=== PATIENT | female | born 1990 | race Caucasian/White ===

== ENCOUNTER 2017-10-16 13:52 | Emergency (ER) | payer OTHER, BC ==
[2017-10-16 14:04] VITALS: BP 144/78; PULSE 103; RESP 18; TEMP 98.8
--- NOTE | 2017-10-16 14:33 | XR ---
EXAMINATION TYPE: XR hand complete RT, XR wrist complete RT DATE OF EXAM: 10/16/2017 CLINICAL HISTORY: Right hand and wrist pain after fall TECHNIQUE: Frontal, lateral and oblique images of the right hand are obtained. COMPARISON: None. FINDINGS: There is no acute fracture/dislocation evident in the right hand. The joint spaces in the right hand appear within normal limits. The overlying soft tissue appears unremarkable. There is no acute fracture/dislocation evident in the right wrist. The joint spaces in the right wri st appear within normal limits. The overlying soft tissue appears unremarkable. IMPRESSION: There is no acute fracture or dislocation in the right wrist or hand.
--- NOTE | 2017-10-16 15:04 | ED ---
Upper Extremity HPI - General Chief Complaint: Extremity Injury, Upper Stated Complaint: Rt Wrist Injury Time Seen by Provider: 10/16/17 14:18 Source: patient, RN notes reviewed, old records reviewed Mode of arrival: ambulatory Limitations: no limitations - History of Present Illness Initial Comments: 26-year-old female presents emergency Department with right wrist pain and hand pain. Patient states that she fell last night, states tried to catch herself with her right hand. Patient states she broke that wrist before in the past. Denies any other injury related to the fall. - Related Data Home Medications Medication Instructions Recorded Confirmed Sertraline [Zoloft] 50 mg PO DAILY 10/16/17 10/16/17 Allergies Allergy/AdvReac Type Severity Reaction Status Date / Time No Known Allergies Allergy Verified 10/16/17 14:04 Review of Systems ROS Statement: Those systems with pertinent positive or pertinent negative responses have been documented in the HPI. ROS Other: All systems not noted in ROS Statement are negative. Past Medical History Past Medical History: No Reported History History of Any Multi-Drug Resistant Organisms: None Reported Past Surgical History: No Surgical Hx Reported Past Psychological History: Anxiety, Depression Smoking Status: Never smoker Past Alcohol Use History: Occasional Past Drug Use History: None Reported General Exam - General Exam Comments Initial Comments: This patient is a 26 year old female no distress. Limitations: no limitations General appearance: alert, in no apparent distress Head exam: Present: atraumatic, normocephalic, normal inspection Eye exam: Present: normal appearance, PERRL, EOMI. Absent: scleral icterus, conjunctival injection, periorbital swelling ENT exam: Present: normal exam, mucous membranes moist Neck exam: Present: normal inspection. Absent: tenderness, meningismus, lymphadenopathy Respiratory exam: Present: normal lung sounds bilaterally. Absent: respiratory distress, wheezes, rales, rhonchi, stridor Cardiovascular Exam: Present: regular rate, normal rhythm, normal heart sounds. Absent: systolic murmur, diastolic murmur, rubs, gallop, clicks GI/Abdominal exam: Present: soft, normal bowel sounds. Absent: distended, tenderness, guarding, rebound, rigid Right Upper Arm exam: Present: normal inspection, full ROM Elbow exam: Present: normal inspection, full ROM Forearm Wrist exam: Present: normal inspection, full ROM, tenderness over anatomical snuff box Hand Wrist exam: Present: normal inspection, full ROM Neuro motor exam: Present: wrist extension intact, thumb opposition intact, thumb IP flexion intact, thumb adduction intact, fingers 2-5 abduction intact Vascular: Present: normal capillary refill Back exam: Present: normal inspection Neurological exam: Present: alert, oriented X3, CN II-XII intact Psychiatric exam: Present: normal affect, normal mood Skin exam: Present: warm, dry, intact, normal color. Absent: rash Course Vital Signs 10/16/17 14:01 Temperature 98.8 F Pulse Rate 103 H Respiratory 18 Rate Blood Pressure 144/78 O2 Sat by Pulse 100 Oximetry Procedures - Orthopedic Splinting/Casting Injury #1 Side: right Upper Extremity Injury Location: wrist, hand Upper Extremity Immobilizer: thumb spica, Ken wrap, synthetic pre-padded splint Medical Decision Making - Medical Decision Making 26-year-old female presents emergency Department with right wrist pain and hand pain. Patient states that she fell last night, states tried to catch herself with her right hand. Patient has snuff box tenderness. Patient has full ROM of the wrist and hand, normal sensation. Patient placed on a thumb spica splint due to tenderness and FOOSH injury. Discussed follow up with PCP and ortho. Return parameters discussed. - Radiology Data Radiology results: report reviewed X-ray of the hand and wrist are negative for any acute fracture. Disposition Clinical Impression: Right wrist pain, Fall Disposition: HOME SELF-CARE Condition: Good Instructions: Hand Sprain (ED), Scaphoid Fracture (ED) Additional Instructions: Patient advised to take Motrin and Tylenol for pain. Remain in the splint. Ice the hand and wrist is much as possible. Return to the emergency department if any alarming signs or symptoms occur. Follow-up with orthopedic in 7-10 days for repeat x-rays. Is patient prescribed a controlled substance at d/c from ED?: No When asked, does pt state using other controlled substances?: No If prescribed controlled substance>3 days was MAPS reviewed?: No If opioid is for acute pain is fill amount 7 days or less?: No If Rx opioid, was Start Talking consent form obtained?: No Referrals: Kendall Aj MD [Primary Care Provider] - 1-2 days Ronnie Quiñonez MD [STAFF PHYSICIAN] - 1-2 days Time of Disposition: 15:04
== END 2017-10-16 15:25 | disposition home or self-care (01) ==
LOC: EC 13:52
DX: M25.531 Pain in right wrist (principal); M25.541 Pain in joints of right hand; F32.9 Major depressive disorder, single episode, unspecified; F41.9 Anxiety disorder, unspecified; Z79.899 Other long term (current) drug therapy; W19.XXXA Unspecified fall, initial encounter; Y92.009 Unspecified place in unspecified non-institutional (private) residence as the place of occurrence of the external cause
CPT/HCPCS: 29125; 99284

== ENCOUNTER 2018-11-02 14:42 | Emergency (ER) | payer BC, OTHER ==
[2018-11-02 14:48] VITALS: BP 126/83; PULSE 110; RESP 22; TEMP 98.6
--- NOTE | 2018-11-02 16:04 | CT ---
EXAMINATION TYPE: CT brain jonathan wo con DATE OF EXAM: 11/02/2018 COMPARISON: Brain 03/29/2010 HISTORY: 27-year-old female Fall, posterior head injury, hitting head on tool box. Pain. CT DLP: 1264.7 mGycm Automated exposure control for dose reduction was used. Technique: Examination of the head was done in axial plane without intravenous contrast. Coronal and sagittal reconstructions performed. CT of the cervical spine was obtained in axial plane without intravenous injection of contrast mater ial. Coronal and sagittal reformatted images were obtained from the axial views for evaluation of f ractures, spinal alignment and canal. FINDINGS: Head: There is no evidence of acute intracranial hemorrhage, acute ischemic changes, mass, mass-effect, or extra-axial fluid collection. There is no effacement of cerebral sulci or basal subarachnoid cister ns. There is no hydrocephalus. There is no midline shift. Arias-white matter distinction is preserv ed. There is mucosal thickening in air fluid level in the left sphenoid sinus. Orbits and globes are inta ct. No calvarial fracture. Mastoid air cells well pneumatized. Cervical spine: The alignment of the cervical spine is normal on coronal and reformatted images. There is no cranial vertebral abnormality. Fracture of the cervical spine is not seen. Reversal of the normal cervical lo rdosis could be positional or due to muscle spasm. There is no evidence of focal disk herniation down to the C5 level. Below this level, artifact from the patient's shoulders limits assessment of the sp inal canal. Sagittal and coronal reformatted images confirm above findings. COMBINED IMPRESSION: 1. No acute intracranial abnormality seen. 2. No acute fracture or malalignment of the cervical spine.
--- NOTE | 2018-11-02 16:05 | XR ---
EXAMINATION TYPE: XR forearm LT DATE OF EXAM: 11/02/2018 COMPARISON: NONE HISTORY: 27-year-old female with pain after fall TECHNIQUE: 2 views FINDINGS: There may be some mild dorsal sided soft tissue swelling along the mid forearm. No underlyi ng acute fracture. Wrist and elbow articulations appear grossly intact. No elbow joint effusion. IMPRESSION: Some dorsal sided soft tissue swelling. No underlying acute osseous abnormality seen.
--- NOTE | 2018-11-02 16:18 | ED ---
Fall HPI - General Chief Complaint: Fall Stated Complaint: Fall, head injury Time Seen by Provider: 11/02/18 14:58 Source: patient Mode of arrival: ambulatory - History of Present Illness Initial Comments: 27-year-old female presenting for mechanical fall. Patient states that she was in her yard doing work when she tripped falling into a toolbox per she hit the right side of her head she extended her left forearm and had an abrasion and about. Patient denies loss of conscious. Patient states she has had a slight headache and nausea. Denies vomiting. Patient denies visual changes she denies any neck pain back pain or any other areas of injury. Remaining review of systems negative. Upon arrival patient appears well signs of acute distress. Patient denies any anticoagulation use. Patient denies any other symptoms. - Related Data Home Medications Medication Instructions Recorded Confirmed Sertraline [Zoloft] 50 mg PO DAILY 10/16/17 10/16/17 Allergies Allergy/AdvReac Type Severity Reaction Status Date / Time No Known Allergies Allergy Verified 10/16/17 14:04 Review of Systems ROS Statement: Those systems with pertinent positive or pertinent negative responses have been documented in the HPI. ROS Other: All systems not noted in ROS Statement are negative. Past Medical History Past Medical History: No Reported History History of Any Multi-Drug Resistant Organisms: None Reported Past Surgical History: No Surgical Hx Reported Past Psychological History: Anxiety, Depression Smoking Status: Never smoker Past Alcohol Use History: Occasional Past Drug Use History: None Reported General Exam - General Exam Comments Initial Comments: General: The patient is awake and alert, in no distress, and does not appear acutely ill. Eye: +3 mm pupils are equal, round and reactive to light, extra-ocular movements are intact. No nystagmus. There is normal conjunctiva bilaterally. No signs of icterus. Ears, nose, mouth and throat: There are moist mucous membranes and no oral lesions. Neck: The neck is supple, there is no tenderness or JVD. No midline or paravertebral tenderness of the cervical spine. Full range of motion of the cervical spine. No raccoon or Lazar sign. Cardiovascular: There is a regular rate and rhythm. No murmur, rub or gallop is appreciated. Respiratory: Lungs are clear to auscultation, respirations are non-labored, breath sounds are equal. No wheezes, stridor, rales, or rhonchi. Gastrointestinal: Soft, non-distended, non-tender abdomen without masses or organomegaly noted. There is no rebound or guarding present. Musculoskeletal: Normal ROM, no tenderness. Strength 5/5. Sensation intact. Pulses equal bilaterally 2+. Neurological: A&O x 3. CN II-XII intact, There are no obvious motor or sensory deficits. Coordination appears grossly intact. Speech is normal. Skin: Skin is warm and dry and no rashes. Small abrasion to the left forearm with hematoma. Patient is able to range at the elbow and wrist. No snuffbox tenderness. Psychiatric: Cooperative, appropriate mood & affect, normal judgment. Limitations: no limitations Course Vital Signs 11/02/18 14:45 Temperature 98.6 F Pulse Rate 110 H Respiratory 22 Rate Blood Pressure 126/83 O2 Sat by Pulse 98 Oximetry Medical Decision Making - Medical Decision Making CT of the brain without contrast negative. No osseous injury of the cervical spine. No osseous injury of the left forearm. Abrasion with hematoma. Patient neurvascularly and intact. Patient is no focal neurological deficits. She most likely has concussion with history of headache and nausea. Patient was educated on concussion protocols. Patient was instructed to follow-up with primary care provider in 2 days. Return parameters were discussed with the patient who verbalizes understanding. Patient is discharged appearing well. Disposition Clinical Impression: Concussion, Hematoma, Abrasion, Fall Disposition: HOME SELF-CARE Condition: Good Instructions (If sedation given, give patient instructions): Concussion (ED), Hematoma (ED) Additional Instructions: Please use medication as discussed. Please follow-up with family doctor in the next 2 days of symptoms for repeat exam. Please return to emergency room if the symptoms increase or worsen or for any other concerns. Is patient prescribed a controlled substance at d/c from ED?: No Referrals: Kendall Aj MD [Primary Care Provider] - 1-2 days Time of Disposition: 16:17
== END 2018-11-02 16:47 | disposition home or self-care (01) ==
LOC: EC 14:42
DX: S06.0X0A Concussion without loss of consciousness, initial encounter (principal); S50.12XA Contusion of left forearm, initial encounter; F41.9 Anxiety disorder, unspecified; F32.9 Major depressive disorder, single episode, unspecified; Z79.899 Other long term (current) drug therapy; W01.198A Fall on same level from slipping, tripping and stumbling with subsequent striking against other object, initial encounter; Y92.096 Garden or yard of other non-institutional residence as the place of occurrence of the external cause; Y93.89 Activity, other specified
CPT/HCPCS: 70450; 72125; 99284

== ENCOUNTER → 2020-02-01 | Outpatient (CLI) | payer OTHER ==
[2020-02-01 14:45] LABS: HCT 37.8 % (34.0-46.0); HGB 12.5 gm/dL (11.4-16.0); MCH 28.3 pg (25.0-35.0); MCHC 33.1 g/dL (31.0-37.0); MCV 85.4 fL (80.0-100.0); Mean Platelet Volume 7.7; Platelet Count 287 k/uL (150-450); RBC 4.43 m/uL (3.80-5.40); RDW 12.1 % (11.5-15.5); WBC 11.7 k/uL (3.8-10.6)
[2020-02-01 15:18] LABS: African American GFR (CKD) >90 (>60 ml/min/1.73 sqM); Glucose 76 mg/dL (74-99); Non-African American GFR(CKD) >90 (>60 ml/min/1.73 sqM)
--- NOTE | 2020-02-01 18:34 | US ---
EXAMINATION TYPE: Transabdominal DATE OF EXAM: 02/01/2020 1:05 PM COMPARISON: NONE CLINICAL HISTORY: Z36 Confirm dates. Confirm dates EXAM PERFORMED: Transabdominal (TA) EXAM MEASUREMENTS: GESTATIONAL AGE / DATING Physician Established: Not Established Yet Dates by LMP: (13 weeks/2 days) EDC: 08/06/2020 Dates by First Scan: This is 1st scan Dates by Current Scan for: (11 weeks/4 days) EDC: 08/18/2020 MATERNAL ANATOMY Uterus: 14.5 x 5.4 x 7.8cm, anteverted Right Ovary: 2.8 x 1.3 x 2.5cm Left Ovary: 2.9 x 1.5 x 1.9cm Post CDS / Adnexa: wnl Presence of free fluid: no Presence of corpus luteal cyst: not seen Presence of subchorionic bleed: 2.9 x 1.5 x 3.1cm complex area lateral to gestational sac GESTATION / SURVEY CRL: 4.7cm (11 weeks/4 days) Yolk Sac (normal less than 6mm): 5.3mm Heart Rate: 163 bpm Rhythm: Normal IUP: Viable IUP Date of LMP: 10/31/2019 Beta HcG (if available): Not available at time of exam. IMPRESSION: 1. Single intrauterine gestation estimated at 11 weeks 4 days gestation based on the crown-rump lengt h. Cardiac activity measures 163 bpm was observed during the study.
[2020-02-01 20:53] LABS: Hepatitis B Surface Antigen Non-Reactive (Non-Reactive)
[2020-02-01 22:56] LABS: HIV 2 AB Non-Reactive (Non-Reactive); HIV AB P24 Non-Reactive (Non-Reactive); HIV P24 AG Non-Reactive (Non-Reactive)
== END | disposition home or self-care (01) ==
LOC: RADUSWWP 12:44
PROVIDERS: ATTEND Obstetrics & Gynecology
DX: Z36.9 Encounter for antenatal screening, unspecified (principal); Z34.01 Encounter for supervision of normal first pregnancy, first trimester; Z3A.11 11 weeks gestation of pregnancy
CPT/HCPCS: 76801; 82565; 82947; 85027; 86762; 86777; 86778; 86780; 87340; 87390

== ENCOUNTER 2020-08-07 18:00 | Emergency (ER) | payer OTHER ==
[2020-08-07] MEDS ORDERED: SODIUM CHLORIDE 0.9% 1,000 ML IV STA (22:24)
[2020-08-07] MEDS ORDERED: METOCLOPRAMIDE 5 MG/ML 2 ML VIAL IVP STA (22:25)
--- NOTE | 2020-08-07 22:27 | ED ---
Nausea/Vomiting/Diarrhea HPI - General Chief complaint: Nausea/Vomiting/Diarrhea Stated complaint: 9 weeks , vomiting, dehydration, back pain Time Seen by Provider: 08/07/20 22:09 Source: patient, RN notes reviewed Mode of arrival: ambulatory Limitations: no limitations - History of Present Illness Initial comments: 29-year-old female that is 9 weeks presenting emergency complaining of nausea and vomiting starting approximately at 4 AM this morning. Significant other notes that he watched her puked at least 15 times before he left for work. She notes that her vomit now is mostly stomach acid. She is unable to keep any food or anything down. She notes that she is dehydrated so she can emergency room to get some IV fluids and some labs drawn to make sure everything was okay. She denied any chest pain shortness of breath headache diarrhea constipation fever fatigue chills. - Related Data Home Medications Medication Instructions Recorded Confirmed Pnv No.95/Ferrous Fum/Folic AC 1 tab PO DAILY 04/01/20 08/07/20 [ Multivitamin Tablet] Folic Acid 4 mg PO DAILY 08/07/20 08/07/20 Allergies Allergy/AdvReac Type Severity Reaction Status Date / Time No Known Allergies Allergy Verified 08/07/20 22:27 Review of Systems ROS Statement: Those systems with pertinent positive or pertinent negative responses have been documented in the HPI. ROS Other: All systems not noted in ROS Statement are negative. Past Medical History Past Medical History: No Reported History History of Any Multi-Drug Resistant Organisms: None Reported Past Surgical History: Tonsillectomy Additional Past Surgical History / Comment(s): Colposcopy Past Anesthesia/Blood Transfusion Reactions: No Reported Reaction Past Psychological History: Anxiety, Depression Smoking Status: Never smoker Past Alcohol Use History: None Reported Past Drug Use History: None Reported - Past Family History Mother Family Medical History: No Reported History General Exam Limitations: no limitations General appearance: alert, in no apparent distress Head exam: Present: atraumatic, normocephalic, normal inspection Eye exam: Present: normal appearance, PERRL, EOMI. Absent: scleral icterus, conjunctival injection, periorbital swelling Neck exam: Present: normal inspection. Absent: tenderness, meningismus, lymphadenopathy Respiratory exam: Present: normal lung sounds bilaterally. Absent: respiratory distress, wheezes, rales, rhonchi, stridor Cardiovascular Exam: Present: regular rate, normal rhythm, normal heart sounds. Absent: systolic murmur, diastolic murmur, rubs, gallop, clicks GI/Abdominal exam: Present: soft, normal bowel sounds. Absent: distended, tenderness, guarding, rebound, rigid Extremities exam: Present: normal inspection, full ROM, normal capillary refill. Absent: tenderness, pedal edema, joint swelling, calf tenderness Neurological exam: Present: alert, oriented X3, CN II-XII intact Psychiatric exam: Present: normal affect, normal mood Skin exam: Present: warm, dry, intact, normal color. Absent: rash Course Vital Signs 08/07/20 19:53 Temperature 98.3 F Pulse Rate 108 H Respiratory 20 Rate Blood Pressure 126/70 O2 Sat by Pulse 98 Oximetry Medical Decision Making - Medical Decision Making 21-year-old female complaining of nausea vomiting, patient Weeks . Labs, 1 L normal saline, 10 mg of Reglan ordered. Labs unremarkable. Case discussed with Dr. Ryan, patient can discharge home with follow-up to [facility]. And primary care - Lab Data Result diagrams: 08/07/20 22:57 08/07/20 22:57 Lab Results 08/07/20 08/07/20 08/07/20 Range/Units 22:57 22:57 23:25 WBC 12.1 H (3.8-10.6) k/uL RBC 4.65 (3.80-5.40) m/uL Hgb 13.5 (11.4-16.0) gm/dL Hct 39.0 (34.0-46.0) % MCV 83.8 (80.0-100.0) fL MCH 29.1 (25.0-35.0) pg MCHC 34.8 (31.0-37.0) g/dL RDW 12.4 (11.5-15.5) % Plt Count 265 (150-450) k/uL MPV 7.5 Neutrophils % 87 % Lymphocytes % 7 % Monocytes % 4 % Eosinophils % 1 % Basophils % 0 % Neutrophils # 10.5 H (1.3-7.7) k/uL Lymphocytes # 0.8 L (1.0-4.8) k/uL Monocytes # 0.5 (0-1.0) k/uL Eosinophils # 0.1 (0-0.7) k/uL Basophils # 0.0 (0-0.2) k/uL Sodium 132 L (137-145) mmol/L Potassium 4.0 (3.5-5.1) mmol/L Chloride 100 (98-107) mmol/L Carbon Dioxide 23 (22-30) mmol/L Anion Gap 9 mmol/L BUN 7 (7-17) mg/dL Creatinine 0.46 L (0.52-1.04) mg/dL Est GFR (CKD-EPI)AfAm >90 (>60 ml/min/1.73 sqM) Est GFR (CKD-EPI)NonAf >90 (>60 ml/min/1.73 sqM) Glucose 97 (74-99) mg/dL Calcium 9.8 (8.4-10.2) mg/dL Total Bilirubin 0.5 (0.2-1.3) mg/dL AST 29 (14-36) U/L ALT 20 (4-34) U/L Alkaline Phosphatase 79 (38-126) U/L Total Protein 7.4 (6.3-8.2) g/dL Albumin 4.5 (3.5-5.0) g/dL Urine Color Urine Appearance (Clear) Urine pH (5.0-8.0) Ur Specific [place] (1.001-1.035) Urine Protein (Negative) Urine Glucose (UA) (Negative) Urine Ketones (Negative) Urine Blood (Negative) Urine Nitrite (Negative) Urine Bilirubin (Negative) Urine Urobilinogen (<2.0) mg/dL Ur Leukocyte Esterase (Negative) Urine RBC (0-5) /hpf Urine WBC (0-5) /hpf Ur Squamous Epith Cells (0-4) /hpf Urine Bacteria (None) /hpf Urine Mucus (None) /hpf Urine HCG, Qual (Not Detectd) Coronavirus (PCR) (Not Detectd) Blood Type AB Positive Blood Type Recheck AB Pos Bld Type Recheck Status No 08/07/20 08/07/20 08/07/20 Range/Units 23:29 23:29 23:29 WBC (3.8-10.6) k/uL RBC (3.80-5.40) m/uL Hgb (11.4-16.0) gm/dL Hct (34.0-46.0) % MCV (80.0-100.0) fL MCH (25.0-35.0) pg MCHC (31.0-37.0) g/dL RDW (11.5-15.5) % Plt Count (150-450) k/uL MPV Neutrophils % % Lymphocytes % % Monocytes % % Eosinophils % % Basophils % % Neutrophils # (1.3-7.7) k/uL Lymphocytes # (1.0-4.8) k/uL Monocytes # (0-1.0) k/uL Eosinophils # (0-0.7) k/uL Basophils # (0-0.2) k/uL Sodium (137-145) mmol/L Potassium (3.5-5.1) mmol/L Chloride (98-107) mmol/L Carbon Dioxide (22-30) mmol/L Anion Gap mmol/L BUN (7-17) mg/dL Creatinine (0.52-1.04) mg/dL Est GFR (CKD-EPI)AfAm (>60 ml/min/1.73 sqM) Est GFR (CKD-EPI)NonAf (>60 ml/min/1.73 sqM) Glucose (74-99) mg/dL Calcium (8.4-10.2) mg/dL Total Bilirubin (0.2-1.3) mg/dL AST (14-36) U/L ALT (4-34) U/L Alkaline Phosphatase (38-126) U/L Total Protein (6.3-8.2) g/dL Albumin (3.5-5.0) g/dL Urine Color Yellow Urine Appearance Cloudy H (Clear) Urine pH 7.0 (5.0-8.0) Ur Specific [place] 1.015 (1.001-1.035) Urine Protein Trace H (Negative) Urine Glucose (UA) Negative (Negative) Urine Ketones 1+ H (Negative) Urine Blood Trace H (Negative) Urine Nitrite Negative (Negative) Urine Bilirubin Negative (Negative) Urine Urobilinogen <2.0 (<2.0) mg/dL Ur Leukocyte Esterase Negative (Negative) Urine RBC 7 H (0-5) /hpf Urine WBC 4 (0-5) /hpf Ur Squamous Epith Cells 5 H (0-4) /hpf Urine Bacteria Occasional H (None) /hpf Urine Mucus Rare H (None) /hpf Urine HCG, Qual Detected (Not Detectd) Coronavirus (PCR) Not Detected (Not Detectd) Blood Type Blood Type Recheck Bld Type Recheck Status Disposition Clinical Impression: Hyperemesis gravidarum, Dehydration Disposition: HOME SELF-CARE Condition: Stable Instructions (If sedation given, give patient instructions): Acute Nausea and Vomiting (ED) Additional Instructions: Please return to the Emergency Department if symptoms worsen or any other conc erns. Follow-up with primary care and [facility] in 2-4 days. Increase oral fluid intake, eat foods that are easy of indigestion. Short supply of Zofran sent take as prescribed. Is patient prescribed a controlled substance at d/c from ED?: No Referrals: Kendall Aj MD [Primary Care Provider] - 1-2 days Time of Disposition: 01:00
[2020-08-07 23:14] LABS: Basophils % (A) 0 %; Eosinophils # (A) 0.1 k/uL (0-0.7); Eosinophils % (A) 1 %; HGB 13.5 gm/dL (11.4-16.0); Lymphocytes # (A) 0.8 k/uL (1.0-4.8); Lymphocytes % (A) 7 %; MCH 29.1 pg (25.0-35.0); MCHC 34.8 g/dL (31.0-37.0); MCV 83.8 fL (80.0-100.0); Mean Platelet Volume 7.5; Monocytes # (A) 0.5 k/uL (0-1.0); Monocytes % (A) 4 %; Neutrophils # (A) 10.5 k/uL (1.3-7.7); Neutrophils % (A) 87 %; Platelet Count 265 k/uL (150-450); RBC 4.65 m/uL (3.80-5.40); RDW 12.4 % (11.5-15.5); WBC 12.1 k/uL (3.8-10.6)
[2020-08-07 23:28] LABS: ALT 20 U/L (4-34); AST 29 U/L (14-36); African American GFR (CKD) >90 (>60 ml/min/1.73 sqM); Albumin 4.5 g/dL (3.5-5.0); Alkaline Phosphatase 79 U/L (38-126); Anion Gap 9 mmol/L; Blood Urea Nitrogen 7 mg/dL (7-17); Calcium 9.8 mg/dL (8.4-10.2); Carbon Dioxide 23 mmol/L (22-30); Chloride 100 mmol/L (98-107); Glucose 97 mg/dL (74-99); Non-African American GFR(CKD) >90 (>60 ml/min/1.73 sqM); Sodium 132 mmol/L (137-145); Total Bilirubin 0.5 mg/dL (0.2-1.3); Total Protein 7.4 g/dL (6.3-8.2)
[2020-08-07 23:59] LABS: Appearance,Urine Cloudy (Clear); Bacteria,Urine Occasional /hpf; Bilirubin,Urine Negative (Negative); Blood,Urine Trace (Negative); Color,Urine Yellow; Glucose,Urine (UA) Negative (Negative); Ketones,Urine 1+ (Negative); Leukocyte Esterase,Urine Negative (Negative); Mucus,Urine Rare /hpf; Nitrite,Urine Negative (Negative); Protein,Urine Trace (Negative); RBC,Urine 7 /hpf (0-5); Specific Gravity,Urine 1.015 (1.001-1.035); Squamous Epithelial Cell,Urine 5 /hpf (0-4); Urobilinogen,Urine <2.0 mg/dL (<2.0); WBC,Urine 4 /hpf (0-5)
[2020-08-08] MEDS ORDERED: ONDANSETRON 4 MG ODT STARTER PACK 2 TAB BTL PO STA (00:50)
[2020-08-08 02:21] VITALS: PULSE 98; RESP 18
[2020-08-08 02:24] VITALS: BP 110/69; TEMP 98.9
== END 2020-08-08 01:30 | disposition home or self-care (01) ==
LOC: EC 18:00
DX: O21.0 Mild hyperemesis gravidarum (principal); O99.281 Endocrine, nutritional and metabolic diseases complicating pregnancy, first trimester; E86.0 Dehydration; O99.341 Other mental disorders complicating pregnancy, first trimester; F41.9 Anxiety disorder, unspecified; F32.9 Major depressive disorder, single episode, unspecified; Z3A.09 9 weeks gestation of pregnancy; Z20.822 Contact with and (suspected) exposure to COVID-19
CPT/HCPCS: 36415; 86900; 86901; 80053; 85025; 81001; 81025; 84702; 87635; 99284; 96374; 96361; J2765; S0119

== ENCOUNTER → 2020-08-07 | Outpatient (CLI) | payer OTHER ==
--- NOTE | 2020-08-07 15:10 | US ---
EXAMINATION TYPE: Transabdominal DATE OF EXAM: 08/07/2020 1:50 PM COMPARISON: NONE CLINICAL HISTORY: Z36 Confirm dates. 1st was amencephalic EXAM PERFORMED: Transabdominal (TA) EXAM MEASUREMENTS: GESTATIONAL AGE / DATING Physician Established: Not established Dates by LMP: ( 8 weeks/6 days) EDC: 03/13/21 Dates by First Scan: No previous Dates by Current Scan for: (8 weeks/5 days) EDC: 03/14/21 MATERNAL ANATOMY Uterus: 11.1 x 7.7 x 6.0 cm Right Ovary: 3.7 x 2.5 x 2.1 cm Left Ovary: 3.0 x 2.4 x 2.1 cm Post CDS / Adnexa: wnl Presence of free fluid: no Presence of corpus luteal cyst: no Presence of subchorionic bleed: no GESTATION / SURVEY CRL: 2.3cm 9weeks/0 days MSD: 3.3 cm 8weeks/2 days Yolk Sac (normal less than 6mm): 0.45 cm Heart Rate: 136pm Rhythm: Normal IUP: Viable IUP Date of LMP: 06/06/20 Beta HcG (if available): IMPRESSION: 1. Single intrauterine gestation estimated at 9 weeks 0 days gestation based on the current crown-rum p length. Cardiac activity measures 136 bpm.
== END | disposition home or self-care (01) ==
LOC: RADUSWWP 13:47
PROVIDERS: ATTEND Obstetrics & Gynecology
DX: Z34.91 Encounter for supervision of normal pregnancy, unspecified, first trimester (principal); Z3A.09 9 weeks gestation of pregnancy
CPT/HCPCS: 76801; 76817

== ENCOUNTER 2021-02-04 16:31 | Outpatient (CLI) | payer OTHER ==
--- NOTE | 2021-02-04 17:49 | US ---
EXAMINATION TYPE: US OB limited DATE OF EXAM: 02/04/2021 COMPARISON: US 2020 CLINICAL HISTORY: ALAN. EXAM PERFORMED: Transabdominal (TA) GESTATIONAL AGE / DATING Physician Established: (34 weeks/5 days) EDC: 03/13/2021 No growth performed on today?s study per ordering physician SURVEY ALAN: 13.3 cm Normal Ultrasound evidence of premature rupture of membranes? no HEART RATE: 153 bpm RHYTHM: Normal IMPRESSION: Amniotic fluid index is 13 cm which is fairly normal.
[2021-02-04 17:50] VITALS: BP 136/86; PULSE 118; RESP 16; TEMP 97.7
--- NOTE | 2021-02-09 07:36 | P.MSEPDOC ---
Presenting Problems - Arrival Data Date of Arrival on Unit: 02/04/21 Time of Arrival on Unit: 16:31 Mode of Transport: Ambulatory - Complaint OB-Reason for Admission/Chief Complaint: Rule Out PROM Comment: Pt presents to triage c/o PPROM at 1530. Medical History - Information : 2 Para: 1 Term: 0 : 0 Abortions: Spontaneous or Elective: 1 Number of Living Children: 0 - Gestational Age Gestational Age by VERONICA (wks/days): 34 Weeks and 5 Days Review of Systems - Review of Systems Constitutional: No problems Breast: No problems ENT: No problems Cardiovascular: No problems Respiratory: No problems Gastrointestinal: No problems Genitourinary: No problems Musculoskeletal: No problems Neurological: No problems Skin: No problems Vital Signs - Temperature Temperature: 97.7 F Temperature Source: Temporal Artery Scan - Pulse Right Sitting Brachial Pulse Rate: 118 Pulse Assessment Method: Automatic Cuff - Respirations Respiratory Rate: 16 Oxygen Delivery Method: Room Air O2 Sat by Pulse Oximetry: 96 - Blood Pressure Right Arm Sitting Blood Pressure: 136/86 Blood Pressure Mean: 102 Blood Pressure Source: Automatic Cuff Medical Screen Scoring - Cervical Exam Dilation (cm): 0 Effacement (%): 40 Station: -3 Membranes: Intact - Uterine Contractions Resting: Soft to palpation - Assessment - Baby A Baseline FHR: 140 Heart Rate - NICHD Category: Category I (Normal) NST: Reactive Physician Notification - Physician Notified Physician Notified Date: 02/04/21 Physician Notified Time: 17:07 Physician: Abril Chaudhary Order Received: Yes - Notification Comment Comment: Spk c\Dr. Chaudhary, kenneth of pts arrival in triage, , 34 5/7, hx of 21wk anacephelic delivery. Possible SROM at 1530, amnisure negative, perineum damp, thin white mucus with SVE, FT/40/-3. Orders rec'd for US for ALAN. If WNL, pt may be d/c home, to follow up as scheduled tomorrow at 0830 c\Dr. Victor. ALAN 13 Maternal Triage Index - Prompt/Priority 3 Prompt Priority 3: Yes Criteria Met for Priority 3: 34 5/7 possible SROM Disposition - Disposition OB Disposition: Discharge to home, Written follow up instructions reviewed Discharge Date: 02/04/21 Discharge Time: 17:35 I agree with the RN Medical Screening Exam: Yes Case reviewed; plan agreed upon as documented in EMR&OBIX.: Yes Diagnosis: FALSE LABOR BEFORE 37 COMPLETED WEEKS OF GEST, THIRD TRI
== END 2021-02-04 17:35 | disposition home or self-care (01) ==
LOC: FBPOP 16:31
PROVIDERS: ATTEND Obstetrics & Gynecology
DX: O47.03 False labor before 37 completed weeks of gestation, third trimester (principal); Z3A.34 34 weeks gestation of pregnancy
CPT/HCPCS: 59025; 84112; 76815; G0463; 99213

== ENCOUNTER 2021-02-08 03:00 | Inpatient (IN) | payer OTHER ==
[2021-02-08] MEDS ORDERED: METHYLERGONOVINE 0.2 MG/ML 1 ML AMP IM PRN (03:37)
[2021-02-08] MEDS ORDERED: OXYTOCIN 10 UNIT/ML 1 ML VIAL IM PRN (03:37)
[2021-02-08] MEDS ORDERED: LIDOCAINE 0.5% (PF) 5 MG/ML (50 ML SDV) SQ PRN (03:37)
[2021-02-08] MEDS ORDERED: TERBUTALINE 1 MG/ML VIAL SQ PRN (03:37)
[2021-02-08] MEDS ORDERED: CARBOPROST TROMETHAMINE 250 MCG/ML 1 ML AMP IM PRN (03:37)
[2021-02-08] MEDS ORDERED: OXYTOCIN 30 UNITS/500 ML NS 30 UNIT in SALINE 1 500ML.BAG IV SCH (03:45)
[2021-02-08] MEDS: LACTATED RINGERS 1,000 ML IV SCH ×4 (03:55→19:50)
[2021-02-08] MEDS ORDERED: AMPICILLIN 2,000 MG in SODIUM CHLORIDE 0.9% 100 ML IVPB ONE (04:00)
[2021-02-08 04:21] LABS: Basophils # (A) 0.1 k/uL (0-0.2); Basophils % (A) 0 %; Eosinophils # (A) 0.2 k/uL (0-0.7); Eosinophils % (A) 1 %; HCT 31.3 % (34.0-46.0); HGB 10.2 gm/dL (11.4-16.0); Lymphocytes # (A) 2.1 k/uL (1.0-4.8); Lymphocytes % (A) 14 %; MCHC 32.5 g/dL (31.0-37.0); MCV 83.1 fL (80.0-100.0); Mean Platelet Volume 8.9; Monocytes # (A) 0.7 k/uL (0-1.0); Monocytes % (A) 5 %; Neutrophils # (A) 11.3 k/uL (1.3-7.7); Neutrophils % (A) 78 %; Platelet Count 321 k/uL (150-450); RBC 3.76 m/uL (3.80-5.40); RDW 14.2 % (11.5-15.5); WBC 14.6 k/uL (3.8-10.6)
[2021-02-08] MEDS ORDERED: SODIUM CHLORIDE 0.9% 100 ML BAG ONE (04:47)
[2021-02-08] MEDS ORDERED: ROPIVACAINE 5MG/ML 20ML VIAL ONE (04:47)
[2021-02-08] MEDS ORDERED: fentaNYL (PF) 50 MCG/ML 5 ML AMP ONE (04:47)
[2021-02-08 06:03] LABS: Glucose,Whole Blood 92 mg/dL (75-99)
[2021-02-08] MEDS: AMPICILLIN 1,000 MG in SODIUM CHLORIDE 0.9% 50 ML IVPB SCH ×2 (08:48→12:11)
[2021-02-08] MEDS ORDERED: HYDROCORTISONE 2.5% RECTAL CREAM 30 GM TUBE RECTAL PRN (13:35)
[2021-02-08] MEDS ORDERED: LANOLIN CREAM 5 GM TUBE TOPICAL PRN (13:35)
[2021-02-08] MEDS ORDERED: diphenhydrAMINE 50 MG CAP PO PRN (13:35)
[2021-02-08] MEDS ORDERED: SIMETHICONE 80 MG CHEWABLE PO PRN (13:35)
[2021-02-08] MEDS ORDERED: BENZOCAINE/MENTHOL SPRAY 1 GM/SPRAY AEROSOL TOPICAL PRN (13:35)
[2021-02-08] MEDS ORDERED: ZOLPIDEM 5 MG TAB PO PRN (13:35)
[2021-02-08] MEDS ORDERED: diphenhydrAMINE 25 MG CAP PO PRN (13:35)
[2021-02-08] MEDS ORDERED: diphenhydrAMINE 50 MG/ML 1 ML VIAL IVP PRN ×2 (13:35)
--- NOTE | 2021-02-08 13:38 | P.HPOB ---
History of Present Illness H&P Date: 02/08/21 Chief Complaint: Intrauterine at 35 weeks: Prom Patient is a 30-year-old at 35 weeks 2 days' gestation arise following spontaneous rupture membranes. She relates that she had spontaneous rupture membranes after she began niharika at approximately 2 AM. She was brought into labor and delivery were verification of spontaneous rupture membranes is made. This is, complicated by marginal cord insertion and diet controlled gestational diabetes. Her previous had an anencephalic baby. She has been followed with maternal medicine through the and has had nonstress tests that have been reactive throughout the latter part of the . Group B strep is not done at this time. We'll plan prophylactic antibiotics. Pertinent labs AB+ blood type, Rh and it was negative, rubella is immune, hepatitis B surface antigen and RPR and HIV were all negative. Dilated initially to proxy 4 cm 80% effaced -2 station category 1 tracing is noted. Expect spontaneous vaginal delivery. She anticipates use of epidural for analgesia. If progress is slowed may need Pitocin augmentation of labor but at this time we'll not plan on using. Past Medical History Past Medical History: No Reported History Additional Past Medical History / Comment(s): Gestational diabetes diet controlled History of Any Multi-Drug Resistant Organisms: None Reported Past Surgical History: Tonsillectomy Additional Past Surgical History / Comment(s): Colposcopy Past Anesthesia/Blood Transfusion Reactions: No Reported Reaction Past Psychological History: Anxiety, Depression Smoking Status: Never smoker Past Alcohol Use History: None Reported Past Drug Use History: None Reported - Past Family History Mother Family Medical History: No Reported History Medications and Allergies Home Medications Medication Instructions Recorded Confirmed Type Pnv No.95/Ferrous Fum/Folic AC 1 tab PO DAILY 04/01/20 02/08/21 History [ Multivitamin Tablet] Sertraline [Zoloft] 25 mg PO HS 02/04/21 02/08/21 History Allergies Allergy/AdvReac Type Severity Reaction Status Date / Time No Known Allergies Allergy Verified 02/08/21 03:08 Exam Osteopathic Statement: *. No significant issues noted on an osteopathic structural exam other than those noted in the History and Physical/Consult. Vital Signs Temp Pulse Resp BP Pulse Ox 02/08/21 03:37 97.3 F L 116 H 16 131/81 95 02/08/21 03:07 97.3 F L 116 H 16 131/81 95 Intake and Output 02/07/21 02/08/21 02/08/21 22:59 06:59 14:59 Output Total 600 Balance -600 Output: Urine 600 Other: Weight 77.111 kg - OBG Physical Exam Breast: both: normal (no masses) Abdomen: bowel sounds normal, no diffuse tenderness, no bruit present, no guarding noted, no hepatomegaly, no splenomegaly, no mass Vulva: both: normal Vagina: normal moisture, no discharge Cervix: no lesion, no discharge Uterus: normal size, normal contour Adnexa: both: normal Anus/Rectum: normal perianal skin, no rectal mass, no hemorrhoids, heme negative Results Result Diagrams: 02/08/21 03:55 Abnormal Lab Results - Last 24 Hours (Table) 02/08/21 Range/Units 03:55 WBC 14.6 H (3.8-10.6) k/uL RBC 3.76 L (3.80-5.40) m/uL Hgb 10.2 L (11.4-16.0) gm/dL Hct 31.3 L (34.0-46.0) % Neutrophils # 11.3 H (1.3-7.7) k/uL
--- NOTE | 2021-02-08 13:39 | P.PROBDLV ---
Vaginal Delivery Note - . Vaginal Delivery Note: Patient progressed complete and pushing with spontaneous vaginal delivery of a viable female over a vaginal wall laceration. Following deliver the head from left occiput anterior position shoulders were delivered gentle sideways traction and mouth nares were then bulb suctioned and baby was placed mother's abdomen where the umbilical cord was allowed to pulsate for 30 seconds prior to clamping cutting. Nursery personnel was present and assumed care. Placenta was then delivered intact and marginal cord insertion is verified. Placenta to pathology. Approximately 2 cm right vaginal wall laceration was noted and easily repaired with 3-0 Vicryl fine 1% Xylocaine for analgesia. scores were 7 and 8 at one and 5 minutes respectively weight is pending. Mother is doing well. Likely baby will go to special care nursery due to early delivery.
[2021-02-08] MEDS: IBUPROFEN 600 MG TAB PO PRN (14:02)
[2021-02-08] MEDS: ACETAMINOPHEN TAB 325 MG TAB PO PRN (20:27)
[2021-02-08] MEDS: SENNOSIDES-DOCUSATE SODIUM 1 EACH TAB PO SCH (20:28)
[2021-02-09] MEDS: IBUPROFEN 600 MG TAB PO PRN ×4 (00:10→19:59)
[2021-02-09] MEDS: ACETAMINOPHEN TAB 325 MG TAB PO PRN ×4 (03:37→23:39)
--- NOTE | 2021-02-09 06:32 | P.PNOBGVD ---
Subjective - Subjective Patient reports: Reports appetite normal, Reports voiding normally, Reports pain well controlled, Reports ambulating normally : doing well Objective - Latest Vital Signs Latest vital signs: Vital Signs Temp Pulse Resp BP Pulse Ox 02/09/21 04:00 98.4 F 96 17 129/78 98 02/09/21 00:00 98.0 F 94 16 126/72 97 02/08/21 20:00 98.9 F 92 17 127/82 98 02/08/21 15:57 99.6 F 115 H 16 132/73 02/08/21 15:50 99.6 F 115 H 16 132/73 02/08/21 15:19 112 H 16 122/71 02/08/21 14:50 112 H 16 125/76 02/08/21 14:35 112 H 16 121/70 02/08/21 14:20 114 H 16 132/78 02/08/21 14:05 116 H 16 127/74 02/08/21 13:50 123 H 16 135/81 Intake and Output 02/08/21 02/08/21 02/09/21 14:59 22:59 06:59 Output Total 1100 Balance -1100 Output: Urine 1100 Other: # Voids 1 2 - Exam Lungs: bilateral: normal Chest: Normal S1, Normal S2 Extremities: Present: normal Abdomen: Present: normal appearance, soft Uterus: Present: normal, firm Assessment and Plan Assessment: day #1. Patient is resting without complaints. Vital signs are stable and she is afebrile. Uterus is firm nontender and she is having normal lochia. I impression this is a normal course. Plan is to continue routine care discharge home tomorrow. (1) 35 to 36 weeks gestation of Current Visit: Yes Status: Acute Code(s): [id number] - SNOMED Code(s): 485338738 (2) PROM (premature rupture of membranes) Current Visit: Yes Status: Acute Code(s): O42.90 - SANGITA ROM, 7TH0 BETW RUPT & ONST LABR, UNSP WEEKS OF GEST SNOMED Code(s): 19732299
--- NOTE | 2021-02-09 06:45 | P.PN ---
Progress Note - Text Progress Note Date: 02/09/21 Patient doing well. Denies headache. Pain controlled. Ambulating without paresthesia or weakness. Has not urinated since surgery. Back clean and dry. POD#1 s/p with duramorph - bladder scan w/ possible straight cath - encourage ambulation
[2021-02-09] MEDS: SENNOSIDES-DOCUSATE SODIUM 1 EACH TAB PO SCH ×2 (07:42→20:00)
[2021-02-09 07:56] VITALS: RESP 16
[2021-02-10] MEDS: IBUPROFEN 600 MG TAB PO PRN ×3 (05:03→18:42)
--- NOTE | 2021-02-10 06:23 | P.PNOBGVD ---
Subjective - Subjective Patient reports: Reports appetite normal, Reports voiding normally, Reports pain well controlled, Reports ambulating normally : doing well, in NICU Objective - Latest Vital Signs Latest vital signs: Vital Signs Temp Pulse Pulse Resp BP Pulse Ox 02/10/21 00:00 96.3 F L 76 16 118/71 98 02/09/21 15:45 98.3 F 76 16 130/82 97 02/09/21 07:53 97.9 F 90 16 126/87 Intake and Output 02/09/21 02/09/21 02/10/21 14:59 22:59 06:59 Other: # Voids 2 - Exam Lungs: bilateral: normal Chest: Normal S1, Normal S2 Extremities: Present: normal Abdomen: Present: normal appearance, soft Uterus: Present: normal, firm Assessment and Plan Assessment: day #2. Patient is resting without complaints. Vital signs are stable she's afebrile. Uterus is firm nontender she's having normal lochia. My impression this is a normal course. Plan is to continue routine care discharge home later today. (1) 35 to 36 weeks gestation of Current Visit: Yes Status: Acute Code(s): [id number] - SNOMED Code(s): 719027533 (2) PROM (premature rupture of membranes) Current Visit: Yes Status: Acute Code(s): O42.90 - SANGITA ROM, 7TH0 BETW RUPT & ONST LABR, UNSP WEEKS OF GEST SNOMED Code(s): 74989637
--- NOTE | 2021-02-10 06:27 | P.DS ---
Providers Date of admission: 02/08/21 03:22 Expected date of discharge: 02/10/21 Attending physician: Aroldo Victor Primary care physician: Stated None - Discharge Diagnosis(es) (1) 35 to 36 weeks gestation of Current Visit: Yes Status: Acute (2) PROM (premature rupture of membranes) Current Visit: Yes Status: Acute Hospital Course: Please see dictated admission history and physical and delivery note per Dr. Santiago on this patient's admission. Brief summary this pleasant 30-year-old 2 para 1 female 35 weeks gestation admitted to labor and delivery with spontaneous rupture membranes and labor. Patient was on have a vaginal delivery viable female . Please see dictated delivery note. day #2 patient's felt be stable for discharge home follow up with me in 6 weeks. Procedures: Normal spontaneous vaginal delivery Patient Condition at Discharge: Good Plan - Discharge Summary New Discharge Prescriptions: New Sertraline [Zoloft] 50 mg PO DAILY #30 tab Ibuprofen [Motrin] 600 mg PO Q6HR PRN #30 tab PRN Reason: Pain No Action Pnv No.95/Ferrous Fum/Folic AC [ Multivitamin Tablet] 1 tab PO DAILY Sertraline [Zoloft] 25 mg PO HS Discharge Medication List Pnv No.95/Ferrous Fum/Folic AC [ Multivitamin Tablet] 1 tab PO DAILY 04/01/20 [History] Sertraline [Zoloft] 25 mg PO HS 02/04/21 [History] Ibuprofen [Motrin] 600 mg PO Q6HR PRN #30 tab 02/10/21 [Rx] Sertraline [Zoloft] 50 mg PO DAILY #30 tab 02/10/21 [Rx] Follow up Appointment(s)/Referral(s): Aroldo Victor MD [STAFF PHYSICIAN] - 03/23/21 2:45 pm Patient Instructions/Handouts: Vaginal Delivery (DC) Activity/Diet/Wound Care/Special Instructions: No intercourse or anything per vagina for 6 weeks. Please call if any fever, chills, excessive vaginal bleeding, and/or abdominal pain. Discharge Disposition: HOME SELF-CARE
[2021-02-10] MEDS: ACETAMINOPHEN TAB 325 MG TAB PO PRN ×2 (08:56→16:12)
[2021-02-10] MEDS: SENNOSIDES-DOCUSATE SODIUM 1 EACH TAB PO SCH (08:56)
[2021-02-10] MEDS ORDERED: SERTRALINE 50 MG TAB PO SCH (09:00)
[2021-02-10 09:20] VITALS: BP 128/77; PULSE 83; TEMP 97.6
== END 2021-02-10 18:47 | disposition home or self-care (01) | DRG 806 ==
LOC: FBPOP 03:00 → 4FBP 03:22
PROVIDERS: ADMIT Obstetrics & Gynecology; ATTEND Obstetrics & Gynecology
PROC: 3E0R3BZ Introduction of Anesthetic Agent into Spinal Canal, Percutaneous Approach (ICD-10-PCS; principal; 2021-02-08)
PROC: 00HU33Z Insertion of Infusion Device into Spinal Canal, Percutaneous Approach (ICD-10-PCS; principal; 2021-02-08)
PROC: 10E0XZZ Delivery of Products of Conception, External Approach (ICD-10-PCS; principal; 2021-02-08)
PROC: 0KQM0ZZ Repair Perineum Muscle, Open Approach (ICD-10-PCS; principal; 2021-02-08)
DX: O42.013 Preterm premature rupture of membranes, onset of labor within 24 hours of rupture, third trimester (principal); O71.4 Obstetric high vaginal laceration alone; Z37.0 Single live birth; O24.420 Gestational diabetes mellitus in childbirth, diet controlled; F32.9 Major depressive disorder, single episode, unspecified; O99.344 Other mental disorders complicating childbirth; F41.9 Anxiety disorder, unspecified; Z3A.35 35 weeks gestation of pregnancy; O43.193 Other malformation of placenta, third trimester; Z79.899 Other long term (current) drug therapy
CPT/HCPCS: 59025; 83036; 84112; 85025; 86850; 86900; 86901; 88307; 99213

== ENCOUNTER 2023-03-21 14:43 | Emergency (ER) | payer OTHER ==
--- NOTE | 2023-03-21 14:45 | ED ---
General Adult HPI - General Source: patient, RN notes reviewed Mode of arrival: ambulatory Limitations: no limitations <Rene Blanco - Last Filed: 03/21/23 14:44> <Lianet Malcolm - Last Filed: 03/21/23 16:09> - General Stated complaint: left foot pain Time Seen by Provider: 03/21/23 14:44 - History of Present Illness Initial comments: 32-year-old female presents emergency department to complaint of left ankle pain. Patient states she dropped a container of cat litter on her left ankle. Patient has pain, swelling bruising. (Rene Blanco) 32-year-old female presents emergency department chief complaint of left foot injury. Patient states that she was walking in dropped a box of cat litter on the lateral aspect of her left foot/ankle. She states that this is been painful to ambulate on since the injury occurred. She does report some bruising to the lateral aspect of her foot. She states that she is able to ambulate but it is painful. (Lianet Malcolm) - Related Data Home Medications Medication Instructions Recorded Confirmed Pnv No.95/Ferrous Fum/Folic AC 1 tab PO DAILY 04/01/20 02/08/21 [ Multivitamin Tablet] Sertraline [Zoloft] 25 mg PO HS 02/04/21 02/08/21 Previous Rx's Medication Instructions Recorded Ibuprofen [Motrin] 600 mg PO Q6HR PRN #30 tab 02/10/21 Sertraline [Zoloft] 50 mg PO DAILY #30 tab 02/10/21 Allergies Allergy/AdvReac Type Severity Reaction Status Date / Time No Known Allergies Allergy Verified 03/21/23 15:09 Review of Systems ROS Other: All systems not noted in ROS Statement are negative. <Rene Blanco - Last Filed: 03/21/23 14:44> ROS Other: All systems not noted in ROS Statement are negative. <Lianet Malcolm - Last Filed: 03/21/23 16:09> ROS Statement: Those systems with pertinent positive or pertinent negative responses have been documented in the HPI. Past Medical History Past Medical History: No Reported History Additional Past Medical History / Comment(s): Gestational diabetes diet controlled History of Any Multi-Drug Resistant Organisms: None Reported Past Surgical History: Tonsillectomy Additional Past Surgical History / Comment(s): Colposcopy Past Anesthesia/Blood Transfusion Reactions: No Reported Reaction Past Psychological History: Anxiety, Depression Smoking Status: Never smoker Past Alcohol Use History: None Reported Past Drug Use History: None Reported - Past Family History Mother Family Medical History: No Reported History <Rene Blanco - Last Filed: 03/21/23 14:44> General Exam <Rene Blanco - Last Filed: 03/21/23 14:44> Limitations: no limitations General appearance: alert, in no apparent distress Head exam: Present: atraumatic, normocephalic, normal inspection Eye exam: Present: normal appearance Extremities exam: Present: normal inspection, tenderness (Lateral left foot near lateral malleolus), normal capillary refill, other (DP and PT pulses 2+). Absent: full ROM (Decreased range of motion due to pain), pedal edema, joint swelling, calf tenderness Neurological exam: Present: alert, oriented X3 Psychiatric exam: Present: normal affect, normal mood Skin exam: Present: warm, dry, intact, other (Ecchymosis to the lateral left ankle) <Lianet Malcolm - Last Filed: 03/21/23 16:09> - General Exam Comments Initial Comments: Visual Physical Exam Vital signs reviewed General: Well-appearing, nontoxic, no acute distress. Head: Normocephalic, atraumatic Eyes: PERRLA, EOMI ENT: Airway patent Chest: Nonlabored breathing Skin: No visual rash, normal skin tone Neuro: Alert and oriented 3 Musculoskeletal: No gross abnormalities (Rene Blanco) Course Vital Signs 03/21/23 03/21/23 15:07 15:50 Temperature 98.1 F 98.1 F Pulse Rate 93 86 Respiratory 16 18 Rate Blood Pressure 113/79 120/82 O2 Sat by Pulse 97 99 Oximetry Medical Decision Making <Rene Blanco - Last Filed: 03/21/23 14:44> <Lianet Malcolm - Last Filed: 03/21/23 16:09> - Medical Decision Making I completed that with note portion of this chart signed Rene Blanco PA-C (Rene Blanco) Was pt. sent in by a medical professional or institution (, PA, TOE PUNCHER, urgent care, hospital, or usp...) When possible be specific @ -No Did you speak to anyone other than the patient for history (EMS, parent, family, police, friend...)? What history was obtained from this source @ -No Did you review nursing and triage notes (agree or disagree)? Why? @ -I reviewed and agree with nursing and triage notes Were old charts reviewed (outside hosp., previous admission, EMS record, old EKG, old radiological studies, urgent care reports/EKG's, usp records)? Report findings @ -No old charts were reviewed Differential Diagnosis (chest pain, altered mental status, abdominal pain women, abdominal pain men, vaginal bleeding, weakness, fever, dyspnea, syncope, headache, dizziness, GI bleed, back pain, seizure, CVA, palpatations, mental health, musculoskeletal)? @ -Differential Musculoskeletal Muscular strain, contusion, ligament sprain, fracture, arthritis, septic arthritis, bursitis, cellulitis, muscle spasm, nerve compression, DVT, arterial occlusion, herpes zoster, electrolyte abnormality, tumor.... This is not meant to be in all inclusive list EKG interpreted by me (3pts min.). @ -None X-rays interpreted by me (1pt min.). @ -X-ray left ankle shows no evidence of acute fracture X-ray left foot shows no evidence acute fracture CT interpreted by me (1pt min.). @ -None done U/S interpreted by me (1pt. min.). @ -None done What testing was considered but not performed or refused? (CT, X-rays, U/S, labs)? Why? @ -None What meds were considered but not given or refused? Why? @ -None Did you discuss the management of the patient with other professionals (professionals i.e. , PA, TOE PUNCHER, lab, RT, psych nurse, social science manager, public health sanitarian technician, teacher, protective services officer, geriatric case manager)? Give summary @ -No Was smoking cessation discussed for >3mins.? @ -No Was critical care preformed (if so, how long)? @ -No Were there social determinants of health that impacted care today? How? (Homelessness, low income, unemployed, alcoholism, drug addiction, transportation, low edu. Level, literacy, decrease access to med. care, halfway, rehab)? @ -No Was there de-escalation of care discussed even if they declined (Discuss DNR or withdrawal of care, Hospice)? DNR status @ -No What co-morbidities impacted this encounter? (DM, HTN, Smoking, COPD, CAD, Cancer, CVA, ARF, Chemo, Hep., AIDS, mental health diagnosis, sleep apnea, morbid obesity)? @ -None Was patient admitted / discharged? Hospital course, mention meds given and route, prescriptions, significant lab abnormalities, going to OR and other pertinent info. @ -Discharged. Patient presented to the emergency department chief complaint of left foot/ankle injury. X-rays obtained which show no evidence of acute fracture. Patient does have some ecchymosis to the lateral aspect of her left ankle and foot. DP and PT pulses 2+. Patient placed in an Ken wrap. Advised to rest, ice, elevate. Patient understands agreeable with plan. Patient discharged in stable condition. Case discussed with Dr. Siegel. Undiagnosed new problem with uncertain prognosis? @ -No Drug Therapy requiring intensive monitoring for toxicity (Heparin, Nitro, Insulin, Cardizem)? @ -No Were any procedures done? @ -No Diagnosis/symptom? @ -Left ankle contusion Acute, or Chronic, or Acute on Chronic? @ -Acute Uncomplicated (without systemic symptoms) or Complicated (systemic symptoms)? @ -uncomplicated Side effects of treatment? @ -No Exacerbation, Progression, or Severe Exacerbation? @ -No Poses a threat to life or bodily function? How? (Chest pain, [place], [place], pneumonia, PE, COPD, DKA, ARF, appy, cholecystitis, CVA, Diverticulitis, Homicidal, Suicidal, threat to staff... and all critical care pts) @ -No (Lianet Malcolm) Disposition <Rene Blanco - Last Filed: 03/21/23 14:44> Is patient prescribed a controlled substance at d/c from ED?: No <Lianet Malcolm - Last Filed: 03/21/23 16:09> Clinical Impression: Contusion of left foot Disposition: HOME SELF-CARE Condition: Stable Instructions (If sedation given, give patient instructions): Foot Contusion (ED) Additional Instructions: Please follow up with your primary care provider. Alternate Tylenol and Motrin as needed for pain. Rest, ice, elevated the foot. Return to the emergency department for new or worsening symptoms. Referrals: Kendall Aj MD [Primary Care Provider] - 1-2 days
--- NOTE | 2023-03-21 15:13 | XR ---
EXAMINATION TYPE: XR foot complete LT DATE OF EXAM: 03/21/2023 CLINICAL HISTORY: pain TECHNIQUE: Frontal, lateral and oblique images of the left foot are obtained. COMPARISON: None. FINDINGS: There is no acute fracture/dislocation evident. The joint spaces appear within normal palomo its. The overlying soft tissue appears unremarkable. IMPRESSION: There is no acute fracture or dislocation. ICD 10 NO FRACTURE, INITIAL EVALUATION
[2023-03-21 15:14] VITALS: TEMP 98.1
--- NOTE | 2023-03-21 15:14 | XR ---
EXAMINATION TYPE: XR ankle complete LT DATE OF EXAM: 03/21/2023 COMPARISON: NONE HISTORY: Pain TECHNIQUE: 3 views of the left ankle are submitted for evaluation. FINDINGS: There is no evidence for fracture or dislocation. Ankle mortise is intact. Soft tissues are within normal limits. IMPRESSION: 1. No evidence for acute fracture.
[2023-03-21 16:02] VITALS: BP 120/82; PULSE 86; RESP 18
== END 2023-03-21 16:01 | disposition home or self-care (01) ==
LOC: EC 14:43
DX: S90.32XA Contusion of left foot, initial encounter (principal); F41.9 Anxiety disorder, unspecified; F32.A Depression, unspecified; Z79.899 Other long term (current) drug therapy; W20.8XXA Other cause of strike by thrown, projected or falling object, initial encounter
CPT/HCPCS: 99283

== ENCOUNTER → 2024-12-04 | Outpatient (CLI) | payer OTHER ==
--- NOTE | 2024-12-04 10:18 | US ---
EXAMINATION TYPE: US transvaginal DATE OF EXAM: 12/04/2024 COMPARISON: NONE CLINICAL INDICATION: Female, 34 years old with history of R10.9 UNSPECIFIED ABDOMINAL PAIN R10.2 PELV IC AND; Pain TECHNIQUE: Transvaginal (TV). Doppler imaging: Not performed. FINDINGS: EXAM MEASUREMENTS: Uterus: 7.8 x 3.9 x 5.2 cm Endometrial Stripe: .3 cm Right Ovary: 3.5 x 1.6 x 1.2 cm Left Ovary: 3.3 x 2.4 x 1.4 cm 1. Uterus: Anteverted wnl 2. Endometrium: wnl 3. Right Ovary: wnl 4. Left Ovary: wnl 5. Bilateral Adnexa: wnl 6. Posterior cul-de-sac: wnl Unremarkable anteverted uterus without focal lesion. Endometrium is within normal limits. Both ovarie s appear unremarkable follicles demonstrated. Color flow is demonstrated within both ovaries. No free fluid. IMPRESSION: No ultrasound evidence for acute pelvic process. [facility], , 12/04/2024 10:16 AM
--- NOTE | 2024-12-04 10:19 | US ---
EXAMINATION TYPE: US abdomen complete DATE OF EXAM: 12/04/2024 COMPARISON: NONE CLINICAL INDICATION: Female, 34 years old with history of R10.9 UNSPECIFIED ABDOMINAL PAIN R10.2 PELV IC AND; pain TECHNIQUE: Grayscale and color Doppler imaging of the abdomen was performed. FINDINGS: EXAM MEASUREMENTS: Liver Length: 12.7 cm Gallbladder Wall: .1 cm CBD: .3 cm, color Doppler imaging was utilized to isolate the common bile duct for measurement. Spleen: 9.9 cm Right Kidney: 9.8 x 4.9 x 3.6 cm Left Kidney: 10.6 x 7.5 x 3.5 cm TUBING MILL OPERATOR NOTES: Pancreas: Tail obscured by overlying bowel gas Liver: wnl, no dilated ducts, masses or cysts. Gallbladder: No stones seen Evidence for sonographic Bernal's sign: No CBD: wnl Spleen: wnl Right Kidney: wnl, No hydronephrosis, calculi or masses seen Left Kidney: wnl, No hydronephrosis, calculi or masses seen Upper IVC: wnl Abd Aorta: wnl The visualized portions of the pancreas unremarkable. The liver is unremarkable without focal lesion. Gallbladder demonstrates no stones, wall thickening or surrounding fluid. Negative sonographic Isaura y's sign. Common bile duct is within normal limits. Spleen is within normal limits. The kidneys demon strate no hydronephrosis, shadowing calculus or solid mass. The visualized abdominal aorta and upper IVC are within normal limits. IMPRESSION: Unremarkable abdominal ultrasound. [facility], , 12/04/2024 10:17 AM
== END | disposition home or self-care (01) ==
LOC: RADUSWWP 09:10
PROVIDERS: ATTEND Family Medicine
DX: N85.4 Malposition of uterus (principal)
CPT/HCPCS: 76700; 76830